=== PATIENT | female | born 1985 | race Two or more races ===

== ENCOUNTER 2022-08-09 12:55 | Emergency (ER) | payer SELFPAY ==
[~2022-08-09] VITALS: Ht 162.6 cm; Wt 59.6 kg
[2022-08-09 15:20] VITALS: BP 168/98
[2022-08-09] MEDS ORDERED: IBUP-1456 PO (15:56)
== END 2022-08-09 16:01 | disposition home or self-care (01) ==
LOC: ER 12:55
DX: S22.32XA Fracture of one rib, left side, initial encounter for closed fracture (principal); S40.012A Contusion of left shoulder, initial encounter; V49.9XXA Car occupant (driver) (passenger) injured in unspecified traffic accident, initial encounter; Y93.89 Activity, other specified; Y92.89 Other specified places as the place of occurrence of the external cause; Y99.8 Other external cause status
CPT/HCPCS: 71101

== ENCOUNTER 2023-05-07 11:38 | Emergency (ER) | payer OTHER ==
[~2023-05-07 11:38] MED LIST: IBUP-1456 PO
[2023-05-07] MEDS ORDERED: NITR-52 PO (13:43)
[2023-05-07] MEDS ORDERED: FLUC150T38 PO (13:43)
== END 2023-05-07 12:51 | disposition left against medical advice (07) ==
LOC: ER 11:38
DX: I10 Essential (primary) hypertension (principal); Z53.21 Procedure and treatment not carried out due to patient leaving prior to being seen by health care provider

== ENCOUNTER 2023-05-07 11:47 | Emergency (ER) | payer MEDICAID, OTHER ==
[~2023-05-07] VITALS: Ht 165.1 cm; Wt 61.6 kg
[2023-05-07 12:38] LABS: Basophils # (auto) 0.1 10 ^3/uL (0-0.2); Basophils % (auto) 0.6 % (0.0-2.0); Eosinophils # (auto) 0 10 ^3/uL (0-0.8); Hemoglobin 11.5 g/dL (12.2-16.2); Mean Corpuscular Hemoglobin 22.6 pg (28.0-32.0); Monocytes # (auto) 0.5 10 ^3/uL (0-1.3); Nucleated Red Blood Cells % 0.1 %
[2023-05-07 12:40] LABS: Eosinophils % (auto) 0.1 % (0.0-7.0); Hematocrit 37.1 % (36.0-46.0); Lymphocytes # (auto) 1.9 10 ^3/uL (0.4-5.4); Lymphocytes % (auto) 21.6 % (10.0-50.0); Mean Corpuscular Hgb Conc. 31.1 g/dL (32.0-36.0); Mean Corpuscular Volume 72.9 fL (80.0-100.0); Monocytes % (auto) 6.1 % (0.0-12.0); Neutrophils # (auto) 6.2 10 ^3/uL (1.6-8.6); Neutrophils % (auto) 71.6 % (37.0-80.0); Red Cell Distribution Width 18.5 % (11.8-14.3); White Blood Cell 8.7 10^3/uL (4.4-10.8)
[2023-05-07 12:42] LABS: Urine Bacteria MANY /hpf (None Seen); Urine Blood Negative /uL (Negative); Urine Clarity HAZY (Clear); Urine Hyaline Cast FEW /lpf (0 - 2); Urine Protein, UAD Negative (Negative); Urine Specific Gravity 1.009 (1.001-1.035); Urine Urobilinogen Normal (Negative); Urine WBC 32 /hpf (0 - 5)
[2023-05-07 12:45] LABS: Urine Color Straw (Yellow)
[2023-05-07 12:55] LABS: Chloride 103 mmol/L (98-107); Potassium 3.7 mmol/L (3.5-5.1); Sodium 137 mmol/L (136-145)
[2023-05-07 12:56] LABS: Anion Gap 7 (5-15); Calcium 9.5 mg/dL (8.7-10.4); Carbon Dioxide 27 mmol/L (20-30)
[2023-05-07 13:01] LABS: BUN/Creatinine Ratio 16.1 (10.0-20.0); Blood Urea Nitrogen 9 mg/dL (9-23); Glucose 147 mg/dL (74-106)
[2023-05-07] MEDS ORDERED: NITR-52 PO (13:43)
[2023-05-07] MEDS ORDERED: FLUC150T38 PO (13:43)
[2023-05-07 13:59] VITALS: BP 156/95; PULSE 93; RESP 16; TEMP 98.1; O2SAT 99
== END 2023-05-07 14:01 | disposition home or self-care (01) ==
LOC: ER 11:49
DX: N39.0 Urinary tract infection, site not specified (principal); B37.9 Candidiasis, unspecified
CPT/HCPCS: 36415; 80048; 81001; 85025

== ENCOUNTER 2023-11-19 08:02 | Emergency (ER) | payer MEDICAID ==
[~2023-11-19] VITALS: Ht 154.9 cm; Wt 62.0 kg
[~2023-11-19 08:02] MED LIST changes: +FLUC150T38 PO; +NITR-52 PO
[2023-11-19 08:55] VITALS: BP 154/106; PULSE 99; RESP 18; TEMP 98.2; O2SAT 98
[2023-11-19] MEDS ORDERED: IBUP-1454 PO (09:24)
[2023-11-19] MEDS: ACETAMINOPHEN 500 MG TAB PO ONE (09:24)
== END 2023-11-19 09:27 | disposition home or self-care (01) ==
LOC: ER 08:02
DX: G44.209 Tension-type headache, unspecified, not intractable (principal)
CPT/HCPCS: 70450

== ENCOUNTER 2024-07-27 07:05 | Emergency (ER) | payer MEDICAID ==
[~2024-07-27] VITALS: Ht 154.9 cm; Wt 63.8 kg
[~2024-07-27 07:05] MED LIST changes: +IBUP-1454 PO
[2024-07-27 07:34] VITALS: BP 147/97; PULSE 97; RESP 16; TEMP 98.1; O2SAT 97
--- NOTE | 2024-07-27 07:48 | ED.PDOC ---
Musculoskeletal HPI Comments 38 y/o F, with PMHx of HTN, presents to the ED for CC of right foot pain. Patient states, she has been experiencing right foot pain onset, x3days. Patient reports, pain to be to the ball of her right foot radiating into her grater toe; worsening when standing or walking. Patient comments, taking 800mg of Ibuprofen at night to help relieve symptoms. No other symptoms or modifying factors present at this time. Still able to bear weight Denies previous surgeries to the foot Denies redness or swelling around the foot Denies fever chills night sweats nausea vomiting Chief Complaint: Lower Extremity Time Seen by MD: 07:30 Primary Care Provider: GEORGINA Reviewed Notes: Nurses Notes, Medications, Allergies Allergies: Coded Allergies: NO KNOWN ALLERGIES (Unverified , 08/09/22) Home Meds Active Scripts Diclofenac Sodium (Topical) (Voltaren Arthritis Pain) 1 % Gel, 1 APPLIC EX Q6HP PRN for 30 Days, #30 GRAMS 0 Refills Prov:ARVIND ESCALANTE NP 07/27/24 Ibuprofen (Ibuprofen) 600 Mg Tab, 1 TAB PO TID, #30 TAB Prov:SO FANG 11/19/23 Fluconazole (Diflucan) 150 Mg Tab, 1 TAB PO ONCE, #1 TAB 1 Refill Prov:LILIYA MCCORMICK 05/07/23 Nitrofurantoin (Nitrofurantoin) 100 Mg Cap, 1 CAP PO BID for 5 Days, #10 CAP Prov:LILIYA MCCORMICK 05/07/23 Ibuprofen (Ibuprofen) 800 Mg Tab, 1 TAB PO TID, #30 TAB Prov:SO FANG 08/09/22 Information Source: Patient Mode of Arrival: Ambulatory Location: Right Extremity Location: Foot Timing: Days Prehospital treatment: Pain Meds Severity: Moderate Able to Move Extremity: Yes Bear Weight: Limited Pain: Moderate Mechanism: Spontaneous Circumstances: Spontaneous Onset of Symptoms: Spontaneous Symptoms: Pain DVT Risk Factors: NONE Last Tetanus: Unknown Associated signs and symptoms: Foot pain Past Medical History PAST MEDICAL HISTORY: HTN Surgical History: Denies all surgeries SLURRY MAN History: Denies all SLURRY MAN Hx Family History Family History: Reviewed,noncontributory to illness Social History Smoker: Non-Smoker Alcohol: Denies ETOH Use Drugs: Denies Drug Use Lives In: Home All Other Systems: Reviewed and Negative ( PER HPI) Physical Exam General Appearance: No Apparent Distress, Normal HEENT: Normal ENT Inspection, Pharynx Normal Neck: Full Range of Motion, Non-Tender, Normal, Normal Inspection Respiratory: Chest Non-Tender, Lungs Clear, No Accessory Muscle Use, No Respiratory Distress, Normal Breath Sounds Cardiovascular: No Edema, No Murmur, No Gallop, Regular Rate/Rhythm Breast Exam: Deferred Gastrointestinal: No Organomegaly, Non Tender, No Pulsatile Mass, Normal Bowel Sounds, Soft Genitalia: Deferred Pelvic: Deferred Rectal: Deferred Extremities: No calf tenderness, Normal capillary refill, Normal inspection, Normal range of motion, Non-tender, No pedal edema Musculoskeletal : Location: Right Extremity Location: Foot (No gross abnormality, no ecchymosis, no soft tissue swelling, no erythema, no pain to the lateral and medial malleolus, no pain to achilles, only localized ttp to the volara aspect of the first meatatarsal,dorsi flexion/planter flexion strong, dp 2+, nerouvascular sensation intact.) Apperance: Normal Neurologic: Alert, toe former stitchdowns II-XII nml as Tested, No Motor Deficits, Normal Affect, Normal Mood, No Sensory Deficits Cerebellar Function: Normal Reflexes: Normal Skin: Dry, Normal Color, Warm Lymphatic: No Adenopathy Was a procedure done? Was a procedure done?: No Differential Diagnosis EXT Differential Diagnosis: Arthritis, Other X-Ray, Labs, Meds, VS Vital Signs Date Time Temp Pulse Resp B/P (MAP) Pulse Ox O2 Delivery O2 Flow Rate FiO2 07/27/24 07:34 97 16 97 Room Air 07/27/24 07:34 98.1 97 16 147/97 (114) 98 98.1 07/27/24 07:21 98.4 102 18 152/98 (116) 97 98.4 [place] [id number] Ph: [phone] DIAGNOSTIC IMAGING Diagnostic Imaging Report : [id number] Signed PATIENT: GAURAV MCCRARY MACCT: [id number] UNIT: [id number] : 1985 LOC: ER ROOM / BED: / AGE / SEX: 38 / F ADM STATUS: REG ER SERVICE [id number] ORDERING PHYSICIAN: BORIS,ARVIND F LAND TITLE EXAMINER PROCEDURE(s): RFOOT - R FOOT 3 VIEW XRAY REASON: Pain to the 1st metatarsal ORDER NUMBER(s): [id number], ACCESSION NUMBER(s): [id number] EXAM: XY R FOOT 3 VIEW XRAY HISTORY: Pain to the 1st metatarsal COMPARISON: None TECHNIQUE: Three views of the right foot were performed. FINDINGS: No acute fracture or dislocation are identified about the right foot. No significant degenerative changes. IMPRESSION: 1. No fracture or dislocation in the right foot. ATED BY: MARTA MERCHANT MD DICTATED DATE/TIME: 07/27/24817 SIGNED BY: MARTA MERCHANT MD SIGNED DATE/TIME: 07/27/24817 CC: X-Ray, Labs, Meds, VS Comment 38 y/o F, with PMHx of HTN, presents to the ED for CC of right foot pain. Patient arrives alert and oriented, ABC's intact, afebrile, vital signs stable, saturating well in room air After ROS and physical examination, differentials considered but not limited to: closed fracture, sprain, OA Diagnostic imaging ordered by me and results interpreted by radiology : RIGHT FOOT XR IMPRESSION: 1. No fracture or dislocation in the right foot. After ROS physical examination and diagnostic imaging the findings are consistent with metatarsalgia. Based on show decision-making the patient agreed to symptomatic treatment at this time. Advised NSAIDs as needed for the pain, shoe inserts, stretch as tolerated, follow up with PCP and patient may benefit from a possible podiatry consultation if the symptoms persist Additional MDM Review of External, Non-ED records: External records reviewed. Discussion with independent historian (EMS, family) history obtained from the patient/parents (if applicable) at bedside Chronic conditions affecting care: None Social determinants of health affecting care: None Consideration of admission (observation or admission): I considered escalation of care to admission for this patient, however given the reassuring workup, the patient is safe for outpatient management. Time of 1ST Reevaluation: 08:00 Reevaluation 1ST: Unchanged Patient Education/Counseling: Diagnosis, Treatment Family Education/Counseling: No Family Present Departure 1 Departure Time of Disposition: 08:26 Impression: Primary Impression: Metatarsalgia, right foot Disposition: 01 HOME / SELF CARE / HOMELESS Condition: Fair e-Prescriptions Diclofenac Sodium (Topical) (Voltaren Arthritis Pain) 1 % Gel 1 APPLIC EX Q6HP PRN for 30 Days, #30 GRAMS 0 Refills Prov: ARVIND ESCALANTE NP 07/27/24 Critical Care Note Critical Care Time?: No Stability Stability form required: No Heart Score Heart Score: Heart Score Response (Comments) Value History N/A 0 EKG N/A 0 Age N/A 0 Risk Factors N/A 0 Troponin N/A 0 Total 0 I personally scribed for ARVIND ESCALANTE NP ([email or web address]) on 07/27/24 at 07:48. Electron ically submitted by Rabia Pollard ([email or web address]). I personally scribed for ARVIND ESCALANTE NP ([email or web address]) on 07/27/24 at 07:56. Electronically submitted by Rabia Pollard ([email or web address]). I personally scribed for ARVIND ESCALANTE NP ([email or web address]) on 07/27/24 at 07:57. Electronically submitted by Rabia Pollard ([email or web address]). I personally scribed for ARVIND ESCALANTE NP ([email or web address]) on 07/27/24 at 08:25. Electronically submitted by Rabia Pollard ([email or web address]). ARVIND ESCALANTE NP Jul 27, 2024 07:48
--- NOTE | 2024-07-27 08:21 | DVH ---
EXAM: XY R FOOT 3 VIEW XRAY HISTORY: Pain to the 1st metatarsal COMPARISON: None TECHNIQUE: Three views of the right foot were performed. FINDINGS: No acute fracture or dislocation are identified about the right foot. No significant degenerative mariza nges. IMPRESSION: 1. No fracture or dislocation in the right foot.
[2024-07-27] MEDS ORDERED: DICL1GEL59 EX (08:27)
== END 2024-07-27 08:32 | disposition home or self-care (01) ==
LOC: ER 07:05
DX: M77.41 Metatarsalgia, right foot (principal); I10 Essential (primary) hypertension; Z79.899 Other long term (current) drug therapy
CPT/HCPCS: 73630